=== PATIENT | female | born 1980 | race Asian ===

== ENCOUNTER 2017-02-15 09:00 | Inpatient (IN) | payer MEDICAID ==
[~2017-02-15] VITALS: Ht 157.5 cm; Wt 79.0 kg
[2017-02-17 06:20] VITALS: Ht 157.5 cm; Wt 79.0 kg
[2017-02-17 06:28] VITALS: BP 110/77; PULSE 72; RESP 18
[2017-02-17] MEDS ORDERED: METHYLERGONOVINE 0.2 MG INJ IM PRN ×2 (06:30→09:30)
[2017-02-17] MEDS ORDERED: MISOPROSTOL 200 MCG TAB PR PRN ×2 (06:30→09:30)
[2017-02-17] MEDS ORDERED: CEFAZOLIN 2 GM/50 ML (PMX) 50 ML IV SCH ×2 (06:30→09:30)
[2017-02-17] MEDS ORDERED: CARBOPROST 250 MCG INJ IM PRN ×2 (06:30→09:30)
[2017-02-17] MEDS ORDERED: OXYTOCIN 30 UNITS/LR 500 ML IV PRN ×2 (06:30→09:30)
[2017-02-17 07:04] LABS: EOSINOPHILS % 0.4 % (0.0-7.0); HEMATOCRIT 29.1 % (37.0-47.0); HEMOGLOBIN 10.3 g/dl (12.0-16.0); MEAN CORPUSCULAR HEMOGLOBIN 33.6 pg (29.0-33.0); MEAN CORPUSCULAR HGB CONC 35.4 g/dl (32.0-37.0); MEAN CORPUSCULAR VOLUME 94.8 fl (82.0-101.0); MEAN PLATELET VOLUME 11.1 fl (7.4-10.4); MONOCYTE # 0.5 10^3/ul (0.3-0.9); MONOCYTES % 10.2 % (0.0-11.0); NEUTROPHILS % 70.8 % (39.0-77.0); RED BLOOD COUNT 3.07 10^6/ul (4.20-5.40); RED CELL DISTRIBUTION WIDTH 13.3 % (11.5-14.5); WHITE BLOOD COUNT 5.3 10^3/ul (4.8-10.8)
[2017-02-17 07:06] LABS: POSITIVE DIFF @See below
[2017-02-17 07:27] LABS: PLATELET COUNT 127 10^3/UL (140-415)
[2017-02-17 07:28] LABS: INR 0.91; PROTIME 12.2 Sec (12.2-14.2)
[2017-02-17] MEDS: LACTATED RINGER'S 1,000 ML IV SCH ×3 (07:28→18:47)
[2017-02-17 07:29] LABS: PARTIAL THROMBOPLASTIN TIME 31.5 Sec (25.0-35.0)
[2017-02-17] MEDS ORDERED: ONDANSETRON 4 MG INJ IV STA (07:38)
[2017-02-17] MEDS ORDERED: CITRIC ACID/NA CITRATE 30 ML CUP PO ONE (07:39)
--- NOTE | 2017-02-17 07:43 | PREOPHP ---
DATE OF ADMISSION: 09/07/2016 HISTORY OF PRESENT ILLNESS: Ms. Adalid Gill is a 36-year-old, 3, para 2, EDC 02/21/2017 intrauterine at 39 weeks gestational age with a history of previous x2, admitted today for elective repeat delivery. The patient denies any contractions, vaginal bleeding or discharge. Her care took [facility] at [facility]. PAST MEDICAL HISTORY: None. MEDICATIONS: vitamins. PAST SURGICAL HISTORY: X2 previous . OB HISTORY: X2 previous . 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 Denies any sexually transmitted diseases. Sexually active with 1 partner. SOCIAL HISTORY: Denies any smoking, drugs, or alcohol. FAMILY HISTORY: None. REVIEW OF SYSTEMS: All within normal except history of present illness. PHYSICAL EXAMINATION: HEENT: Within normal. LUNGS: CTA. CVS: S1, S2. Regular rhythm. ABDOMEN: Gravid, nontender. Negative CVA bilateral. Positive vertical scar secondary to history of delivery. EXTREMITIES: Negative edema. No calf tenderness. VAGINAL: Exam deferred. HEART TRACING: Category 1. ASSESSMENT: 36-year-old, 3, para 2, intrauterine at 39 weeks gestational age. Previous x2. Rh negative. Multiparous, desires elective repeat delivery with bilateral tubal ligation. Declined . PLAN: Consent for a repeat delivery with bilateral tubal sterilization. Risks, benefits and alternatives explained. All questions were answered. Dictated By: Hernandez Rubio MD /anthony/fern /Document#: [id number]
[2017-02-17] MEDS ORDERED: PHENYLephrine (100 MCG/ML) 5ML SYG ONE (08:04)
[2017-02-17] MEDS ORDERED: FENTAnyl 50 MCG/ML VIAL ONE (08:04)
[2017-02-17] MEDS ORDERED: morphine SULFATE/PF (10 MG/10 ML) INJ ONE (08:04)
[2017-02-17] MEDS ORDERED: OXYTOCIN 10 UNIT INJ ONE (08:05)
[2017-02-17] MEDS ORDERED: METOCLOPRAMIDE 10 MG INJ ONE ×2 (08:05→08:21)
[2017-02-17] MEDS ORDERED: DEXAMETHASONE 4 MG/ML 1 ML INJ ONE (08:33)
[2017-02-17] MEDS ORDERED: MIDAZOLAM 1 MG/ML 2 ML INJ ONE (08:45)
--- NOTE | 2017-02-17 09:09 | SIPON ---
Date/Time of Note Date/Time of Note DATE: 02/17/17 TIME: 09:07 Operative Report Free Text/Dictation A viable female 9 9 basically in 1-5 minutes weight 6 lbs. 14 oz. normal uterus tubes and ovaries Preoperative Diagnosis 36-year-old 3 para 2 interim at 39 weeks gestational age previous 2 multiparity desires elective repeat delivery with bilateral tubal sterilization declined Postoperative Diagnosis Same Operation/Procedure Performed Repeat low transverse delivery with bilateral tubal ligation [place] method Surgeon: TAMRA PEARSON MD inside sales assistant: JANE BLAKE MD Anesthesia Type: spinal Estimated Blood Loss: other (500) Transfusion Required: no Specimens Portion of the left and right fallopian tube Grafts/Implants: none Complications: no TAMRA PEARSON MD Feb 17, 2017 09:09
[2017-02-17] MEDS ORDERED: LANOLIN 7 GM TUBE TOP PRN (09:30)
[2017-02-17] MEDS ORDERED: DIPHENHYDRAMINE 50 MG INJ IV PRN (09:30)
[2017-02-17] MEDS ORDERED: MIDAZOLAM 1 MG/ML 2 ML INJ IV PRN (09:30)
[2017-02-17] MEDS ORDERED: HYDROmorphONE (0.2 MG/ML) 10ML SYG IV PRN ×3 (09:30)
[2017-02-17] MEDS ORDERED: NALOXONE (0.4 MG/ML) INJ IV PRN (09:30)
[2017-02-17] MEDS ORDERED: LABETALOL HCL 20MG INJ IV PRN (09:30)
[2017-02-17] MEDS ORDERED: TRIMETHOBENZAMIDE 100 MG/ML VIAL IM PRN ×2 (09:30)
[2017-02-17] MEDS ORDERED: hydrALAzine 20 MG INJ IV PRN (09:30)
[2017-02-17] MEDS ORDERED: ALBUTEROL 0.083% (NEB) 2.5 MG/3 ML AMP HHN PRN (09:30)
[2017-02-17] MEDS ORDERED: FENTAnyl 50 MCG/ML VIAL IV PRN ×3 (09:30)
[2017-02-17] MEDS ORDERED: ONDANSETRON 4 MG INJ IV PRN ×2 (09:30)
[2017-02-17] MEDS ORDERED: morphine 4 MG/ML VIAL IV PRN (09:30)
[2017-02-17] MEDS ORDERED: NALBUPHINE HCL (10 MG/1 ML) INJ IV PRN (09:30)
[2017-02-17] MEDS ORDERED: MEPERIDINE 25 MG INJ IV PRN (09:30)
[2017-02-17] MEDS ORDERED: KETOROLAC 30 MG INJ IV PRN (09:30)
[2017-02-17] MEDS ORDERED: IPRATROPIUM (NEB) 0.5 MG/2.5 ML AMP HHN PRN (09:30)
[2017-02-17] MEDS ORDERED: ZOLPIDEM 5 MG TAB PO PRN (09:30)
[2017-02-17] MEDS ORDERED: morphine 2 MG INJ IV PRN (09:30)
[2017-02-17] MEDS ORDERED: OXYCODONE/ACETAMINOPHEN (5/325) TAB PO PRN ×3 (09:30)
[2017-02-17] MEDS ORDERED: EPHEDrine SULFATE 50 MG/5 ML SYG IV PRN (09:30)
[2017-02-17] MEDS ORDERED: OXYTOCIN 30 UNITS/LR 500 ML IV SCH (10:11)
[2017-02-17] MEDS: OXYTOCIN 30 UNITS/LR 500 ML IV SCH ×2 (10:33→14:31)
[2017-02-17 13:25] VITALS: BP 105/61; PULSE 60; RESP 18
[2017-02-17] MEDS: IBUPROFEN 600 MG TAB PO SCH ×3 (14:24→23:57)
[2017-02-17 16:47] VITALS: BP 110/62; PULSE 63; RESP 16
[2017-02-17] MEDS: DIPHENHYDRAMINE 50 MG INJ IV PRN (18:13)
--- NOTE | 2017-02-17 19:17 | OPR ---
DATE OF OPERATION: 02/17/2017 PRIMARY DIAGNOSIS: A 36-year-old, 3, para 2, intrauterine at 39 weeks gestational age, previous section x2, desires elective repeat delivery with bilateral tubal sterilization. POSTOPERATIVE DIAGNOSIS: A 36-year-old, 3, para 2, intrauterine at 39 weeks gestational age, previous section x2, desires elective repeat delivery with bilateral tubal sterilization. OPERATIVE PROCEDURE: Repeat low transverse delivery with bilateral tubal ligation, [place] method. SURGEON: Hernandez Rubio MD AUTOMATIC QUILLING MACHINE OPERATOR: Madhu Watts MD ANESTHESIA: Spinal. ESTIMATED BLOOD LOSS: 500 mL. OPERATIVE FINDINGS AT SURGERY: A viable female, 9 and 9 respectively at 1 and 5 minutes, weight 6 pounds 14 ounces. Normal uterus, tubes, and ovaries. PATHOLOGY: Portions of the right and left fallopian tubes. DESCRIPTION OF PROCEDURE: After explaining the risks, benefits, and alternatives to the patient, consent signed in the chart, the patient was taken to the operating room, where spinal anesthesia was found be adequate. She was then prepared and draped in a normal sterile fashion in dorsal supine position with a leftward tilt. A Pfannenstiel skin incision was then made with a scalpel and carried through the underlying of the fascia. The fascia was incised in the midline and the incision was extended laterally with Chahal scissors. The superior aspect of the fascial incision was grasped with Luis Alberto clamps, elevated, and underlying rectus muscles dissected off bluntly. Attention was then turned to the inferior aspect of the incision which, in a similar fashion was grasped, tented up with Luis Alberto clamps, and rectus muscles dissected off bluntly. The rectus muscle were in the midline. Peritoneum identified, tented up, entered sharply with Metzenbaum scissors. The peritoneal incision was extended superiorly for good visualization of the bladder. The bladder blade was then inserted and the vesicouterine identified, grasped with pickups, entered sharply with Metzenbaum scissors. This incision was extended laterally and the bladder flap created digitally. The bladder blade was then reinserted. Lower segment incised in a transverse fashion with the scalpel. The uterine incision was extended laterally. The bladder blade was removed and the infant's head delivered atraumatically. The nose and mouth were suctioned. Cord clamped and cut. The infant was handed off to the waiting field crop grower. The placenta was then removed. The uterus was cleared of all clots and debris. The uterine incision was repaired with 1-0 chromic in a running, locked fashion. A second layer of the same suture was used for imbrication of excellent hemostasis. At this point, a [place] clamp was used to grasp the left fallopian tube 4 cm from the cornual region. A 3 cm segment of the tube was then ligated with free tie of plain gut and excised. Good hemostasis was noted. Similarly, the right fallopian tube was ligated and excellent hemostasis was noted. The uterus was returned to the abdomen. The gutters were cleared of all clots. The peritoneum and rectus abdominal muscles were reapproximated with 3-0 Vicryl in an interrupted fashion. The fascia was reapproximated with 0 Vicryl in a running fashion. The subcutaneous tissue was reapproximated with 2-0 plain gut in a running fashion. The skin was closed with charly. The patient tolerated procedure well. Sponge, lap, needle counts correct x2. The patient was taken to recovery room in stable condition. Dictated By: Hernandez Rubio MD /anthony/marybeth /Document#: [id number]
[2017-02-17 20:00] VITALS: BP 92/55; PULSE 74; RESP 18
[2017-02-17] MEDS: SENNA/DOCUSATE NA (8.6MG/50MG) TAB PO SCH (21:19)
[2017-02-17] MEDS: CEFAZOLIN 2 GM/50 ML (PMX) 50 ML IVPB SCH (23:44)
[2017-02-17 23:45] VITALS: BP 98/56; PULSE 76; RESP 18
[2017-02-18] MEDS: DIPHENHYDRAMINE 50 MG INJ IV PRN ×2 (00:28→06:48)
[2017-02-18] MEDS: LACTATED RINGER'S 1,000 ML IV SCH (03:10)
[2017-02-18 03:40] VITALS: BP 97/46; PULSE 73; RESP 18
[2017-02-18] MEDS: IBUPROFEN 600 MG TAB PO SCH ×4 (05:28→23:54)
[2017-02-18] MEDS: CEFAZOLIN 2 GM/50 ML (PMX) 50 ML IVPB SCH (08:26)
[2017-02-18 08:45] VITALS: BP 88/66; PULSE 75; RESP 15
[2017-02-18] MEDS: SENNA/DOCUSATE NA (8.6MG/50MG) TAB PO SCH ×2 (09:01→20:23)
[2017-02-18] MEDS: OXYCODONE/ACETAMINOPHEN (5/325) TAB PO PRN (09:02)
[2017-02-18 10:23] LABS: BASOPHILS % 0.1 % (0.0-2.0); HEMATOCRIT 23.2 % (37.0-47.0); HEMOGLOBIN 7.9 g/dl (12.0-16.0); LYMPHOCYTES # 0.8 10^3/ul (0.8-2.9); LYMPHOCYTES % 10.6 % (15.0-51.0); MEAN CORPUSCULAR HEMOGLOBIN 32.8 pg (29.0-33.0); MEAN CORPUSCULAR HGB CONC 34.1 g/dl (32.0-37.0); MEAN CORPUSCULAR VOLUME 96.3 fl (82.0-101.0); MEAN PLATELET VOLUME 11.3 fl (7.4-10.4); MONOCYTE # 0.5 10^3/ul (0.3-0.9); MONOCYTES % 5.9 % (0.0-11.0); NEUTROPHIL # 6.5 10^3/ul (1.6-7.5); NEUTROPHILS % 82.8 % (39.0-77.0); PLATELET COUNT 139 10^3/UL (140-415); RED BLOOD COUNT 2.41 10^6/ul (4.20-5.40); RED CELL DISTRIBUTION WIDTH 13.7 % (11.5-14.5); WHITE BLOOD COUNT 7.8 10^3/ul (4.8-10.8)
[2017-02-18 15:33] VITALS: BP 85/57; PULSE 69; RESP 16
[2017-02-18 20:00] VITALS: BP 95/56; PULSE 70; RESP 20
--- NOTE | 2017-02-18 20:14 | QN ---
Documentation Comment Progress note postop day 1 Patient seen and evaluated awake alert oriented 3 denies headache nausea vomiting shortness of breath visual changes palpitation Positive ambulation tolerating diet positive voiding Vital signs stable afebrile Lungs CTA bilateral Abdomen uterine fundus firm at umbilicus negative distention incision clean dry and intact Extremity negative edema no calf tenderness Assessment status post repeat low transverse delivery with bilateral tubal ligation postop day 1 Asymptomatic anemia Stable afebrile Plan repeat CBC in morning iron supplement TAMRA PEARSON MD Feb 18, 2017 20:14
[2017-02-18] MEDS: FERROUS SULFATE (EC) 325 MG TAB PO SCH (20:25)
[2017-02-19] MEDS: OXYCODONE/ACETAMINOPHEN (5/325) TAB PO PRN ×3 (02:42→20:55)
[2017-02-19 03:30] VITALS: BP 99/59; PULSE 76; RESP 18
[2017-02-19] MEDS: IBUPROFEN 600 MG TAB PO SCH ×3 (06:00→18:28)
[2017-02-19 08:30] VITALS: BP 101/59; PULSE 66; RESP 15
[2017-02-19] MEDS: FERROUS SULFATE (EC) 325 MG TAB PO SCH ×2 (08:46→20:55)
[2017-02-19] MEDS: SENNA/DOCUSATE NA (8.6MG/50MG) TAB PO SCH ×2 (08:46→20:55)
[2017-02-19 09:52] LABS: BASOPHILS % 0.1 % (0.0-2.0); EOSINOPHILS # 0.1 10^3/ul (0.0-0.5); EOSINOPHILS % 0.7 % (0.0-7.0); HEMATOCRIT 24.2 % (37.0-47.0); HEMOGLOBIN 8.3 g/dl (12.0-16.0); LYMPHOCYTES # 1.2 10^3/ul (0.8-2.9); LYMPHOCYTES % 16.1 % (15.0-51.0); MEAN CORPUSCULAR HEMOGLOBIN 33.9 pg (29.0-33.0); MEAN CORPUSCULAR HGB CONC 34.3 g/dl (32.0-37.0); MEAN CORPUSCULAR VOLUME 98.8 fl (82.0-101.0); MONOCYTE # 0.3 10^3/ul (0.3-0.9); MONOCYTES % 4.6 % (0.0-11.0); NEUTROPHIL # 5.7 10^3/ul (1.6-7.5); NEUTROPHILS % 78.1 % (39.0-77.0); PLATELET COUNT 150 10^3/UL (140-415); RED BLOOD COUNT 2.45 10^6/ul (4.20-5.40); RED CELL DISTRIBUTION WIDTH 13.6 % (11.5-14.5); WHITE BLOOD COUNT 7.3 10^3/ul (4.8-10.8)
[2017-02-19 16:33] VITALS: BP 101/52; PULSE 68; RESP 16
--- NOTE | 2017-02-19 17:37 | QN ---
Documentation Comment Progress note postop day 1 Patient was seen and evaluated awake alert oriented 3 positive ambulation tolerating diet positive flatulence positive bowel movement denies any headache nausea vomiting shortness of breath or visual changes Vital signs stable Abdomen soft nontender uterine fundus below umbilicus clean dry and intact charly intact Extremity negative edema no calf tenderness Assessment status post repeat low transverse delivery with bilateral tubal ligation Plan discharge home tomorrow follow-up in office this Wednesday to remove charly TAMRA PEARSON MD Feb 19, 2017 17:37
--- NOTE | 2017-02-19 17:38 | PD.PPDC ---
RETAIL KEY HOLDER Discharge Instruction Condition Patient Condition: Good Diet Diet: Resume Regular Diet Activity/Restrictions Activity: Normal Activity May Shower Restrictions: No Exercising No Lifting No Driving No Sexual Activity Nothing in the Vagina No [place] No Tampons, douche Follow-up Follow-up with Physician: 3, Day/Days Provider Information: to remove charly Return to clinic for APPLIQUE SEWER Instructions: Fever greater than 101 Chills Worsening abdominal pain Excessive Vaginal Bleeding More than 2 pads per hour Unable to tolerate diet OB Instructions: Breast Tenderness Depression Blurried Vision Headache Surgical Instructions: Incisional Drainage Incisional Redness TAMRA PEARSON MD Feb 19, 2017 17:38
[2017-02-19 19:45] VITALS: BP 109/62; PULSE 70; RESP 18
[2017-02-20] MEDS: IBUPROFEN 600 MG TAB PO SCH ×3 (00:24→12:55)
[2017-02-20 03:30] VITALS: BP 108/65; PULSE 78; RESP 18
[2017-02-20 08:15] VITALS: BP 111/56; PULSE 63; RESP 18
[2017-02-20] MEDS ORDERED: DIPHTH/TET/ACEL PERTUSS (ADULT) 0.5 ML VIAL IM* ONE (09:00)
--- NOTE | 2017-02-20 09:21 | DS ---
DATE OF ADMISSION: 02/17/2017 DATE OF DISCHARGE: 02/20/2017 PRIMARY DIAGNOSES: A 36-year-old, 3, para 3, intrauterine at 39 weeks' gestational age, previous C- section x2, desires elective repeat delivery with bilateral tubal ligation. PROCEDURE: Repeat low transverse delivery with bilateral tubal ligation, primary method. DISCHARGE CONDITION: Stable. DISCHARGE INSTRUCTIONS: Activity: None per vaginal. No heavy lifting x6 weeks. Diet regular. DISCHARGE MEDICATIONS: 1. Motrin. 2. Percocet. 3. Iron. 4. Colace. DISCHARGE SUMMARY: Ms. Noah Gill is a 36-year-old, 3, para 3, status post repeat low transverse delivery with bilateral tubal ligation on 02/17/2017. She had a viable female, Apgars 9 and 9 respectively at one and five minutes, weight 6 pounds 14 ounces. She had uneventful postop day 1 and 2. She will be discharged on postop day 3. Her incision is clean, dry, and intact. . She will follow up in the office this Wednesday to remove her charly. Dictated By: Hernandez Rubio MD /anthony/[facility] /Document#: [id number]
[2017-02-20] MEDS: SENNA/DOCUSATE NA (8.6MG/50MG) TAB PO SCH (09:58)
[2017-02-20] MEDS: FERROUS SULFATE (EC) 325 MG TAB PO SCH (09:58)
== END 2017-02-20 21:15 | disposition home or self-care (01) | DRG 766 ==
LOC: L-D 02-17 05:59 → PP1 02-17 13:23
PROVIDERS: ADMIT Obstetrics & Gynecology; ATTEND Obstetrics & Gynecology
PROC: 0UL70ZZ Occlusion of Bilateral Fallopian Tubes, Open Approach (ICD-10-PCS; 2017-02-17)
PROC: 3E033VJ Introduction of Other Hormone into Peripheral Vein, Percutaneous Approach (ICD-10-PCS; 2017-02-17)
PROC: 10D00Z1 Extraction of Products of Conception, Low, Open Approach (ICD-10-PCS; principal; 2017-02-17 07:30)
DX: O34.211 Maternal care for low transverse scar from previous cesarean delivery (principal); Z30.2 Encounter for sterilization; Z37.0 Single live birth; Z3A.39 39 weeks gestation of pregnancy
CPT/HCPCS: 85025; 85610; 85730; 86592; 86850; 86870; 86885; 86900; 86901; 87340; 88302; 90715; 94760; 99464; J0690; J1100; J1200; J2250; J2274; J2370; J2405; J2590; J2765; J2790; J3010; J7120